=== PATIENT | female | born 1950 | race Caucasian/White ===

== ENCOUNTER 2022-11-27 15:36 | Outpatient (CLI) | payer MEDICARE, SELFPAY ==
[2022-11-27 13:43] LABS: Albumin* 4.5 g/dL (3.3-5.0); Chloride* 106 mmol/L (96-114); Sodium* 141 mmol/L (135-149)
[2022-11-27 13:44] LABS: Potassium* 4.2 mmol/L (3.6-5.1)
[2022-11-27 13:45] LABS: Cholesterol* 246 mg/dL (90-199); Creatinine* 0.9 mg/dL (0.5-1.5); Estimated Glomerular Filt Rate 68 ml/min
[2022-11-27 13:46] LABS: Alanine Aminotransferase* 20 U/L (4-35); Alkaline Phosphatase* 96 U/L (40-150); Aspartate Amino Transferase* 26 U/L (12-35); Bilirubin Total* 0.6 mg/dL (0.1-1.5); Blood Urea Nitrogen* 30 mg/dL (7-30); Carbon Dioxide* 27 mmol/L (20-32); Glucose* 95 mg/dL (60-115); Total Protein* 7.3 g/dL (6.0-8.3); Triglycerides* 249 mg/dL (40-149)
[2022-11-27 13:47] LABS: Calcium* 9.5 mg/dL (8.4-10.6); HDL Cholesterol* 63 mg/dL (>=50); LDL Cholesterol Calculated 133 mg/dL (<100)
== END 2022-11-27 15:37 | disposition home or self-care (01) ==
PROVIDERS: PCP Emergency Medicine; Visit Provider Emergency Medicine
DX: Z00.00 Encounter for general adult medical examination without abnormal findings (principal); E78.5 Hyperlipidemia, unspecified; I10 Essential (primary) hypertension
CPT/HCPCS: 80053; 80061

== ENCOUNTER 2022-12-13 11:01 | Outpatient (CLI) | payer MEDICARE, SELFPAY | END 2022-12-13 11:02 | disposition home or self-care (01) | PROVIDERS: PCP Emergency Medicine; Visit Provider Emergency Medicine | DX: R25.1 Tremor, unspecified | CPT/HCPCS: 80048; 80061; 84443 ==

== ENCOUNTER 2023-01-08 11:59 | Outpatient (CLI) | payer MEDICARE, SELFPAY ==
[2023-01-08 22:17] LABS: Vitamin B12* 734 pg/mL (243-894)
== END 2023-01-08 12:00 | disposition home or self-care (01) ==
LOC: LKVREF 12:00
PROVIDERS: PCP Emergency Medicine; Visit Provider Emergency Medicine
DX: R41.3 Other amnesia (principal)
CPT/HCPCS: 82607

== ENCOUNTER 2023-02-04 21:01 | Outpatient (CLI) | payer MEDICARE, SELFPAY ==
--- NOTE | 2023-02-12 12:27 | W.PM.SLEEP ---
Sleep Study Details Details Interpreting Provider: Jose Alfredo Varela MD Date of Sleep Study: 02/04/23 Sleep Study Details: STUDY TYPE:? Hospital ? BMI:? 26.2 ORDERING PROVIDER:? Rhoda INDICATION:? Concerns about sleep apnea ? SLEEP SUMMARY:? Total sleep time 389, arousal index 17.3, efficiency 90.8 RESPIRATORY SUMMARY:? AHI 0.3, RDI 5.4. There was minimal positional variation. There was no supine REM sleep noted PERIODIC LIMB MOVEMENTS OF SLEEP:? Index 3.1, index with arousal 0 CARDIAC:? Awake 69, asleep 61. No arrhythmias noted IMPRESSION:? The overall AHI is within normal limits however the RDI is elevated at 5.4. This could be considered mild sleep apnea. If the patient is symptomatic than treatment could consist of either CPAP or dental appliance. RECOMMENDATION: See above impression.
== END 2023-02-04 21:02 | disposition home or self-care (01) ==
LOC: SLEEP 21:02
PROVIDERS: PCP Emergency Medicine; Visit Provider Emergency Medicine
DX: G47.33 Obstructive sleep apnea (adult) (pediatric) (principal)
CPT/HCPCS: 95810

== ENCOUNTER 2023-02-27 14:16 | Outpatient (CLI) | payer MEDICARE, SELFPAY ==
--- NOTE | 2023-02-27 14:30 | CRLHL7_ITS ---
For Patients: As a result of the Century Cures Act, medical imaging exams and procedure reports are released immediately into your electronic medical record. You may view this report before your referring provider. If you have questions, please contact your health care provider. DXA BONE MINERAL DENSITY STUDY, 02/27/2023 Reason for exam: Screening. Current height (inches): 65.0 Weight (lbs.): 162.0 Menopause age: 57 Ethnicity: White 1. Have you had a previous hip or vertebral fracture? No. 2. Have you had any fractures during your adult life which did not result from significant trauma (e.g., auto accident)? No. 3. Did either of your parents have a hip fracture? Yes. 4. Do you smoke? No. 5. Have you ever taken Glucocorticoids? No. 6. Do you have rheumatoid arthritis? No. 7. Do you have secondary osteoporosis? No. 8. Do you drink 3 or more alcoholic drinks per day? No. 9. Are you being treated for osteoporosis? No. 10. Have you ever taken any of the following medications: Actonel, Evista, Fosamax, Miacalcin, Reclast, Boniva, Forteo, HRT (i.e., estrogen/hormone therapy), Protelos, Prolia, Vitamin D, Calcium, other ??? please specify. ANSWER: No. 11. Do you have any of the following medical conditions: Anorexia or bulimia, asthma or emphysema, end stage renal disease, hyperparathyroidism, any seizure disorders, cancer, inflammatory bowel diseases, hysterectomy, other ??? please specify. ANSWER: No. 12. What was your maximum height (inches)? 66. 13. Do you perform weightbearing exercise regularly? No. 14. Do you regularly consume dairy products? Yes. 15. Do you drink caffeinated beverages? No. 16. At what age did your period start? 14. 17. Are you premenopausal? No. 18. How many full-term pregnancies have you had? 2. 19. Have you ever missed your period for more than 6 months in a row (not including or menopause)? No. TECHNIQUE: Bone mineral density study was performed using the [employer]. FINDINGS: The results of the study expressed as bone mineral density (BMD) are as follows: Lumbar Spine L1 to L3: BMD: 1.279 g/cm2. T-score: 2.4. Z-score: 4.6. Neck Left: BMD: 0.863 g/cm2. T-score: 0.1. Z-score: 2.0. Right: BMD: 0.816 g/cm2. T-score: -0.3. Z-score: 1.6. Total Left: BMD: 1.019 g/cm2. T-score: 0.6. Z-score: 2.2. Right: BMD: 1.027 g/cm2. T-score: 0.7. Z-score: 2.3. IMPRESSION: Normal bone density. AIMEE LAUREANO M.D. Diagnostic/Breast Radiologist [email or web address] Transcribed: 6:[address]/Dictated by: Aimee Laureano MD @ 02/27/2023 3:02:00 PM (Electronically Signed)
--- NOTE | 2023-02-27 15:00 | CRLHL7_ITS ---
For Patients: As a result of the Century Cures Act, medical imaging exams and procedure reports are released immediately into your electronic medical record. You may view this report before your referring provider. If you have questions, please contact your health care provider. BILATERAL SCREENING MAMMOGRAM WITH COMPUTER-AIDED DETECTION AND TOMOSYNTHESIS TECHNIQUE: CC and MLO views were obtained. These mammographic images have been obtained using full-field digital technique. These mammographic images were interpreted with the benefit of computer-aided detection. Breast Tomosynthesis was used in this interpretation. COMPARISON FILM: 09/05/21, 07/13/20, 05/19/19. FINDINGS: There are scattered areas of fibroglandular density IMPRESSION: There is no radiographic evidence for malignancy. ASSESSMENT: BI-RADS Category 2: Benign RECOMMENDATION: Routine screening mammogram in 1 year. A lay language report of this examination will be provided to the patient. Ruiz Latham M.D. Diagnostic/Nuclear Medicine Radiologist [email or web address] BRANDYN/Dictated by: Ruiz Latham MD @ 02/28/2023 8:15:00 AM (Electronically Signed)
== END 2023-02-27 14:17 | disposition home or self-care (01) ==
LOC: RAD 14:18
PROVIDERS: PCP Emergency Medicine; Visit Provider Emergency Medicine
DX: Z12.31 Encounter for screening mammogram for malignant neoplasm of breast (principal); Z13.820 Encounter for screening for osteoporosis
CPT/HCPCS: 77063; 77067; 77080

== ENCOUNTER 2023-03-12 10:00 | Outpatient (CLI) | payer MEDICARE, SELFPAY | END 2023-03-12 10:01 | disposition home or self-care (01) | LOC: NFLDREF 22:49 | PROVIDERS: PCP Emergency Medicine; Referring Provider Emergency Medicine; Visit Provider Emergency Medicine | DX: E78.5 Hyperlipidemia, unspecified (principal) | CPT/HCPCS: 80061 ==

== ENCOUNTER 2023-12-23 10:08 | Outpatient (CLI) | payer MEDICARE, SELFPAY | END 2023-12-23 10:09 | disposition home or self-care (01) | LOC: NFLDREF 12-24 06:48 | PROVIDERS: PCP Emergency Medicine; Referring Provider Emergency Medicine; Visit Provider Emergency Medicine | DX: I10 Essential (primary) hypertension (principal); E78.5 Hyperlipidemia, unspecified | CPT/HCPCS: 80053; 80061 ==

== ENCOUNTER 2024-01-07 10:05 | Outpatient (CLI) | payer MEDICARE, SELFPAY | END 2024-01-07 10:06 | disposition home or self-care (01) | LOC: NFLDREF 01-08 10:12 | PROVIDERS: PCP Emergency Medicine; Referring Provider Emergency Medicine; Visit Provider Emergency Medicine | DX: R79.89 Other specified abnormal findings of blood chemistry (principal) | CPT/HCPCS: 82565 ==

== ENCOUNTER 2024-02-18 09:33 | Outpatient (CLI) | payer MEDICARE, SELFPAY ==
--- NOTE | 2024-02-18 10:50 | W.ANESCHARGE ---
Anesthesia Charges Start Date/Time Anesthesia Start Date: 02/18/24 Anesthesia Start Time: 10:54 Stop Date/Time Anesthesia Stop Date: 02/18/24 Anesthesia Stop Time: 11:25 Summary Extremes of Age - Over 70 or under 1: MDA
--- NOTE | 2024-02-18 11:28 | W.ANESCHARGE ---
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
== END 2024-02-18 09:34 | disposition home or self-care (01) ==
LOC: OP CLINIC 09:34
PROVIDERS: PCP Emergency Medicine; Visit Provider Surgery
DX: Z12.11 Encounter for screening for malignant neoplasm of colon (principal); K63.5 Polyp of colon; Z86.010 Personal history of colon polyps
CPT/HCPCS: 00811; 45385; 88305; 99100; J2704

== ENCOUNTER 2024-03-10 13:47 | Outpatient (CLI) | payer MEDICARE, SELFPAY ==
--- NOTE | 2024-03-10 14:00 | MM_ITS ---
Patient: ADALID RIOJAS Facility:?[facility] Patient ID:?[id number] Site Patient ID:?[id number]. Site :?[id number] Study:?XRay-Breast Bilateral 3D screening mammogram w/cad-03/10/2024 2:11:37 PM Ordering Physician:Zita Final Report: BILATERAL SCREENING MAMMOGRAM WITH COMPUTER-AIDED DETECTION AND TOMOSYNTHESIS TECHNIQUE: CC and MLO views were obtained. These mammographic images have been obtained using full-field digital technique. These mammographic images were interpreted with the benefit of computer-aided detection. Breast tomosynthesis was used in this interpretation. COMPARISON FILM: 02/27/23, 09/05/21, 07/13/20. FINDINGS: There are scattered areas of fibroglandular density. IMPRESSION: There is no radiographic evidence for malignancy. ASSESSMENT: BI-RADS Category 1: Negative RECOMMENDATION: Routine screening mammogram in 1 year. A lay language report of this examination will be provided to the patient. MARY NEAL M.D. Diagnostic Radiologist [email or web address] TANO/rory D& Transcribed: 4:[address]/Dictated by: Mary Neal MD @ 03/11/2024 11:43:00 AM Signed by:?Mary Neal MD @03/12/2024 5:30:00 AM (Electronic Signature)
== END 2024-03-10 13:48 | disposition home or self-care (01) ==
LOC: MAMMO 13:48
PROVIDERS: PCP Emergency Medicine; Visit Provider Emergency Medicine
DX: Z12.31 Encounter for screening mammogram for malignant neoplasm of breast (principal)
CPT/HCPCS: 77063; 77067

== ENCOUNTER 2024-09-09 08:39 | Outpatient (CLI) | payer MEDICARE, SELFPAY | END 2024-09-09 08:40 | disposition home or self-care (01) | LOC: LKVREF 08:40 | PROVIDERS: PCP Emergency Medicine; Visit Provider Emergency Medicine | DX: Z01.818 Encounter for other preprocedural examination (principal) | CPT/HCPCS: 80048 ==

== ENCOUNTER 2024-12-22 14:24 | Outpatient (CLI) | payer MEDICARE, SELFPAY | END 2024-12-22 14:25 | disposition home or self-care (01) | PROVIDERS: PCP Emergency Medicine; Visit Provider Emergency Medicine | DX: R41.3 Other amnesia (principal); R41.89 Other symptoms and signs involving cognitive functions and awareness; I10 Essential (primary) hypertension | CPT/HCPCS: 80053; 82607; 84443 ==

== ENCOUNTER 2024-12-29 17:58 | Outpatient (CLI) | payer MEDICARE, SELFPAY | END 2024-12-29 17:59 | disposition home or self-care (01) | LOC: MRI 17:59 | PROVIDERS: PCP Emergency Medicine; Visit Provider Emergency Medicine | DX: R41.89 Other symptoms and signs involving cognitive functions and awareness (principal); G31.9 Degenerative disease of nervous system, unspecified; I67.82 Cerebral ischemia | CPT/HCPCS: 70551 ==

== ENCOUNTER 2025-04-08 10:43 | Outpatient (CLI) | payer MEDICARE, SELFPAY | END 2025-04-08 10:44 | disposition home or self-care (01) | LOC: NFLDREF 04-20 06:58 | PROVIDERS: PCP Emergency Medicine; Referring Provider Emergency Medicine; Visit Provider Emergency Medicine | DX: R73.03 Prediabetes (principal); I10 Essential (primary) hypertension; E78.2 Mixed hyperlipidemia | CPT/HCPCS: 80053; 80061 ==

== ENCOUNTER 2025-06-08 13:16 | Outpatient (CLI) | payer MEDICARE, SELFPAY ==
--- NOTE | 2025-06-08 13:40 | CRLHL7_ITS ---
For Patients: As a result of the Century Cures Act, medical imaging exams and procedure reports are released immediately into your electronic medical record. You may view this report before your referring provider. If you have questions, please contact your health care provider. INDICATION: BILATERAL SCREENING MAMMOGRAM, ASYMPTOMATIC 75 Y/O FEMALE COMPARISON: 03/10/2024, 02/27/2023, 09/05/2021 TECHNIQUE: Digital mammogram in CC and MLO projections including computer-aided detection (CAD) and tomosynthesis. BREAST COMPOSITION: There are scattered areas of fibroglandular density. FINDINGS: No suspicious findings. ASSESSMENT: BI-RADS 1 Negative RECOMMENDATION: Annual screening mammogram. A lay language report of this examination will be provided to the patient. Dictated by: Prasad Lang MD @ 06/09/2025 12:42:01 (Electronically Signed)
== END 2025-06-08 13:17 | disposition home or self-care (01) ==
LOC: MAMMO 13:16
PROVIDERS: PCP Emergency Medicine; Visit Provider Emergency Medicine
DX: Z12.31 Encounter for screening mammogram for malignant neoplasm of breast (principal)
CPT/HCPCS: 77063; 77067

== ENCOUNTER 2025-11-12 14:55 | Outpatient (CLI) | payer MEDICARE, SELFPAY | END 2025-11-12 14:56 | disposition home or self-care (01) | PROVIDERS: PCP Physician Assistant Medical; Visit Provider Physician Assistant Medical | DX: G30.9 Alzheimer's disease, unspecified (principal); F02.80 Dementia in other diseases classified elsewhere, unspecified severity, without behavioral disturbance, psychotic disturbance, mood disturbance, and anxiety; G20.A1 Parkinson's disease without dyskinesia, without mention of fluctuations | CPT/HCPCS: 80053; 80061; 82306; 82607; 83735; 84207; 84425; 84443 ==

== ENCOUNTER 2025-11-23 10:17 | Outpatient (CLI) | payer MEDICARE, SELFPAY ==
--- NOTE | 2025-11-23 11:00 | CRLHL7_ITS ---
For Patients: As a result of the 21st Century Cures Act, medical imaging exams and procedure reports are released immediately into your electronic medical record. You may view this report before your referring provider. If you have questions, please contact your health care provider. INDICATION: Unintentional weight loss. COMPARISON: None TECHNIQUE: CT examination of the chest, and pelvis was performed following the uneventful intravenous administration of 58 cc of Isovue 370. Thin section axial images were obtained from the thoracic inlet through the pubic symphysis. Water was administered as an oral contrast agent. Sagittal and coronal reformatted imaging was performed Please note that all CT scans at this facility use dose modulation, iterative reconstruction, and/or weight-based dosing when appropriate to reduce radiation dose to as low as reasonably achievable. FINDINGS: CHEST: Heart size normal. No mediastinal or hilar adenopathy or mass. No pericardial effusion. The lungs show evidence of remote granulomatous infection. A few tiny noncalcified nodules are noted the largest of which measures about 3.5 millimeters at the left base on series 3, image 75. Consider a 12 month follow-up noncontrast chest CT to reassess this nodule in a high risk patient. In a non high-risk patient, serial follow-up of a nodule of this size is not required as per Fleischner society guidelines. Normal pleural spaces. ABDOMEN AND PELVIS: LIVER/BILIARY SYSTEM:Probable steatosis. Partially calcified lesion in the posterior segment of the right lobe probably related to a vascular malformation. This is of doubtful clinical significance. No intra or extrahepatic biliary ductal dilation. There is cholelithiasis. No indication of acute cholecystitis or common duct obstruction. ADRENALS: Normal KIDNEYS, URETERS and BLADDER:The kidneys appear normal. No visible mass, calculus or hydronephrosis. The ureters and bladder as visualized appear normal. SPLEEN:Normal appearance. PANCREAS: Appears normal. RETROPERITONEUM and MESENTERY: There is no mass, adenopathy or aortic aneurysm. Atherosclerotic vascular calcification GASTROINTESTINAL SYSTEM: There is no evidence of diverticulitis, colitis, mechanical obstruction, or appendicitis. The small bowel as visualized appears normal.Fecal retention and scattered diverticulosis. PELVIS: No mass, adenopathy or free fluid. OSSEOUS STRUCTURES and ABDOMINAL WALL: Demineralization and degenerative change.No significant abdominal wall defect. OTHER: No free fluid or free air. IMPRESSION: 1. CHEST: Findings of remote granulomatous infection. A few tiny noncalcified nodules are noted the largest of which measures 3.5 millimeters. A nodule of this size generally does not require follow-up except in high-risk individuals, in which case 12 month follow-up chest CT should be considered 2. ABDOMEN AND PELVIS: Cholelithiasis. Calcified hepatic lesion probably a vascular malformation. This is of doubtful clinical significance. Fecal retention. Diverticulosis. Other nonacute findings as above 3. OSSEOUS STRUCTURES AND BODY WALL: Degenerative changes. 4. No specific visible cause for unintended weight loss on this examination. Please note that all CT scans at this facility use dose modulation, iterative reconstruction, and/or weight-based dosing when appropriate to reduce radiation dose to as low as reasonably achievable. Dictated by Roberto Cowan MD @ 11/29/2025 7:44:50 AM (Electronically Signed)
== END 2025-11-23 10:18 | disposition home or self-care (01) ==
LOC: CT 10:18
PROVIDERS: PCP Physician Assistant Medical; Visit Provider Physician Assistant Medical
DX: R63.4 Abnormal weight loss (principal); R91.8 Other nonspecific abnormal finding of lung field; K80.20 Calculus of gallbladder without cholecystitis without obstruction; K57.90 Diverticulosis of intestine, part unspecified, without perforation or abscess without bleeding
CPT/HCPCS: 71260; 74177; Q9967